=== PATIENT | male | born 1935 | race Caucasian/White ===

== ENCOUNTER 2017-02-09 10:25 | Outpatient (CLI) | payer OTHER ==
--- NOTE | 2017-02-09 13:02 | DIAGNOSTIC IMAGING REPORT ---
PROCEDURE: MR LUMBAR SPINE W/O CONTRAST INDICATION: CHRONIC LBP WITH BILAT LEG WEAKNESS, history of prior work related injury TECHNIQUE: T1, T2, and STIR sagittal sequences. T2 and T1 axial sequences. COMPARISON: 12/28/2006 FINDINGS: Alignment and curvature: Grade 1 retrolisthesis L2-3, stable. Grade 1 retrolisthesis L3 and L4, slightly progressed. Otherwise normal alignment. No transverse subluxation or scoliotic curvature. Vertebral bodies: Fairly extensive type 2 modic changes in the surrounding the L3-4 disc level with Schmorl's node formation., new since the previous study. Mild degenerative vertebral body height loss with moderate to large anterior and lateral endplate spurs from the lower thoracic to the upper lumbar levels. Moderate posterior endplate spurring L2-L4. Vertebral body hemangioma in T12. No suspicious osseous lesions, edema, or evidence of acute Disc spaces: Moderate disc height loss L2-3, slightly progressed. Moderate to severe disc height loss L3-4, progressed. Mild disc height loss L4-5 and L5-S1 without significant change. Chronic, left-sided disc protrusion at T11-12 Spinal canal: Distal cord remains normal in caliber and signal. Conus terminates at L1. Paraspinal soft tissues: No suspicious mass. Mild, symmetric muscular atrophy in the lower thoracic spine/upper lumbar level. T12-L1: Normal disc. Moderate facet arthropathy, left worse than right slightly impinging on the left dorsolateral thecal sac without cord impingement. L1-2: Mild diffuse circumferential disc osteophyte complex slightly encroaching on the right lateral recess. Mild facet arthropathy. No significant central canal or foraminal stenosis. L2-3: Moderate diffuse circumferential disc osteophyte complex and moderate facet arthropathy. Effacement of anterior CSF space with lateral recess narrowing bilaterally. Mild bilateral foraminal narrowing, stable, and mild overall central canal narrowing. L3-4: Moderate facet arthropathy and moderate circumferential disc osteophyte complex with small right lateral foraminal disc protrusion. Mild narrowing of the right lateral recess and overall mild central canal stenosis. Mild bilateral foraminal narrowing, fairly stable compared to the prior study. L4-5: Mild circumferential disc bulge and a small central/right paracentral disc herniation into the lateral recess with disc material extruding caudally. Slight displacement of the right L5 lateral recess nerve root posteriorly. Mild epidural lipomatosis and overall moderate central canal narrowing, slightly progressed compared to the prior study. Mild facet arthropathy and mild bilateral foraminal narrowing, right slightly worse than left. The degree of foraminal narrowing is unchanged. L5-S1: Moderate left, and mild right facet arthropathy. Minimal posterior disc osteophyte complex. Facet arthropathy medially displaces the left S1 nerve root in the central canal and narrows the left lateral recess, stable. Severe left, and moderate right foraminal narrowing, slightly progressed on the right, stable on the left. IMPRESSION: 1. Progression of endplate degeneration, slight retrolisthesis, and Schmorl's node formation at the L3-4 level without new significant central canal or foraminal stenosis. 2. Progression of small central right paracentral disc herniation at L4-5 encroaching on the right lateral recess nerve root. Correlate with right L5 radiculopathy. 3. Slight further narrowing of the right lateral recess at L3-4. Correlate with right L4 radiculopathy. 4. Slight progression of central canal narrowing at L4-5. 5. Stable, chronic severe left foraminal narrowing at L5-S1 and slight progression of moderate right foraminal narrowing at the same level. Probable chronic bilateral L5 radiculopathy.
== END 2017-02-09 23:00 | disposition home or self-care (01) ==
LOC: MRI SRH 10:25
DX: M51.36 Other intervertebral disc degeneration, lumbar region (principal); M51.26 Other intervertebral disc displacement, lumbar region